=== PATIENT | female | born 1950 | race Caucasian/White ===

== ENCOUNTER 2017-11-14 08:27 | Inpatient (IN) | payer MEDICARE, OTHER ==
[~2017-11-14 08:27] MED LIST: CEFAZOLIN 2 Gram 2 GM/50 ML BAG IVPB ONE; CELECOXIB 100 MG CAPSULE PO ONE; FAMOTIDINE 20MG TABLET PO ONE; MECLIZINE 25 MG TABLET PO ONE; METOCLOPRAMIDE 10 MG TABLET PO ONE; VANCOMYCIN HCL 1,000 MG in DEXTROSE 5 % IN WATER 250 ML IVPB ONE
[2017-11-14 10:03] LABS: ABO GROUP A; RH TYPE POSITIVE
[2017-11-14 10:04] LABS: ANTIBODY SCREEN NEGATIVE (NEGATIVE)
[2017-11-14] MEDS ORDERED: BISACODYL 10 MG SUPP RC PRN (13:13)
[2017-11-14] MEDS ORDERED: NALOXONE 0.4 MG/1 ML VIAL IVP PRN (13:13)
[2017-11-14] MEDS ORDERED: ZOLPIDEM TARTRATE 5 MG TABLET PO PRN (13:13)
[2017-11-14] MEDS ORDERED: ACETAMINOPHEN W/ CODEINE 300MG/60MG TABLET PO PRN ×2 (13:13)
[2017-11-14] MEDS ORDERED: HYDROCODONE/APAP 10/325 TABLET PO PRN (13:13)
[2017-11-14] MEDS ORDERED: TRAMADOL HCL 50 MG TABLET PO PRN (13:13)
[2017-11-14] MEDS ORDERED: HYDROMORPHONE HCL 2 MG/ML VIAL IM PRN (13:13)
[2017-11-14] MEDS ORDERED: MAGNESIUM HYDROXIDE 30 ML UDC PO PRN (13:13)
[2017-11-14] MEDS ORDERED: KETOROLAC 30 MG/ML VIAL IVP PRN ×2 (13:13)
[2017-11-14] MEDS ORDERED: ACETAMINOPHEN 325 MG TAB PO PRN (13:13)
[2017-11-14] MEDS ORDERED: DIPHENHYDRAMINE HCL 25 MG CAPSULE PO PRN (13:13)
[2017-11-14] MEDS ORDERED: ONDANSETRON HCL IV 4 MG/2 ML VIAL IVP PRN (13:13)
[2017-11-14] MEDS ORDERED: AL HYDROX/MAG HYDROX 30ML UD PO PRN (13:13)
[2017-11-14] MEDS ORDERED: HYDROMORPHONE HCL 2 MG/ML VIAL IV ONE (14:00)
[2017-11-14] MEDS ORDERED: PROPOFOL 10 MG/ML VIAL IV ONE (14:00)
[2017-11-14] MEDS ORDERED: *PACU ONLY* KETAMINE HCL 10 MG/ML (20ML) VIAL IV ONE (14:00)
[2017-11-14] MEDS ORDERED: FENTANYL PF 100MCG/2ML VIAL IV ONE (14:00)
[2017-11-14] MEDS ORDERED: EPHEDRINE SULFATE 50 MG/ML ML IV ONE (14:00)
[2017-11-14] MEDS ORDERED: ONDANSETRON HCL IV 4 MG/2 ML VIAL IVP ONE (14:00)
[2017-11-14] MEDS ORDERED: DEXAMETHASONE 4 MG/ML 1ML VIAL IVP ONE (14:00)
[2017-11-14] MEDS ORDERED: MIDAZOLAM HCL 2MG/2ML VIAL IV ONE (14:00)
[2017-11-14] MEDS ORDERED: BUPIVACAINE 0.5% W/EPI MPF 30 ML VIAL IVP ONE (15:24)
[2017-11-14] MEDS ORDERED: SCOPOLAMINE 1 PATCH TDSY TD ONE (15:24)
[2017-11-14] MEDS ORDERED: TRANEXAMIC ACID 1,000 MG/10 ML ML IV ONE ×2 (15:24→15:41)
--- NOTE | 2017-11-14 15:24 | Operative Note ---
DATE: 11/14/2017 PREOPERATIVE DIAGNOSIS: END-STAGE ARTHROSIS OF THE LEFT KNEE. POSTOPERATIVE DIAGNOSIS: END-STAGE ARTHROSIS OF THE LEFT KNEE. PROCEDURE: Left total knee arthroplasty using [employer] II components with a size 6 Oxinium femur, size 5 stemmed tibial base plate, a 9 mm lipped Highly Crosslinked tibial insert, and a 35 mm all-plastic patella. STAFF SURGEON: SOWMYA ALVARENGA M.D. ANESTHESIA: SPINAL. PREPARATION: CHLORAPREP. INDIVIDUAL CONSIDERATIONS: NONE. PROCEDURE: The patient was taken to the Operating Room and placed supine on the operating table. She had a successful induction of a spinal anesthetic. Her left lower extremity was prepped and draped in the usual fashion. The patient had midline approach to the knee. The limb was elevated and the tourniquet was inflated to 250 mmHg Sharp dissection was carried down through the skin and subcutaneous tissue. Small veins were coagulated with a Bovie. A medial arthrotomy was performed. The patella was everted and the knee was flexed. She had exposed bone and large marginal osteophytes throughout. Fat pad was resected, ACL was sacrificed, provisional anterior meniscectomies were performed, and the capsule was released from the medial proximal tibia. The initial femoral airline transport pilot hole was then made freehand. The intramedullary femoral cutting jig was placed. It was cut in 7 degrees of valgus and adjusted for rotation and secured with pins for a 10 mm resection. The initial transverse cut was then made. Skin guide was placed in the anterior and posterior airline transport pilot holes and it was found that a size 6 would be appropriate but I needed to translate it anteriorly 2 mm to make it fit. The anterior and posterior cuts followed by chamfer cuts were made, osteophytes removed, and a size 6 trial was placed and found to fit well. The tibia was brought forward and the remainder of the meniscal remnants were removed with a Bovie. The extra-articular tibial cutting jig was placed and it was cut in neutral with a 3 degree AP slope. Care was taken to adjust for rotation and flexion using the extra-articular alignment guide and andreina landmarks. It was set for a 9 mm resection, keyed off the high lateral side, and secured with pins. When cutting the tibia, care was taken to preserve the PCL insertion on the tibia. Large medial osteophytes were removed and I was able to fit a size 5 baseplate. It was adjusted for rotation and secured with pins. With a 9 mm trial and a femoral trial, there was excellent motion and stability. Ligamentous balance, rotation, and alignment were thought to be normal. The femoral airline transport pilot holes were impacted, and the triflange tibial stamp was impacted, and these trial components were removed. The patient had a very thick patella and roughly 9 mm of bone was removed with the oscillating saw. I could easily fit a 35 patella and the three airline transport pilot holes were drilled. the tourniquet was let down to get bleeders posteriorly then placed back up again. The knee was then thoroughly irrigated out with pulsatile Betadine and saline to remove any visual or palpable debris. Bony surfaces were then dried. A size 5 stem tibial baseplate was cemented into place, followed by impaction of the 9 mm lipped tibial insert, followed by cementing of a size 6 Oxinium femur, followed by cementing of the 35 mm patella. Implant surfaces were compressed, excess cement was removed, and after the cement had set, there was excellent motion and stability. Ligamentous balance, rotation alignment, and patellofemoral tracking were normal. No lateral release was required. The tourniquet was let down. Hemostasis was obtained with a Bovie. There was final irrigation. I then took 30 mL of Marcaine withe Epinephrine and infiltrated the skin, subcut, and periosteum of the femur and tibia. I then went ahead and began closing the fascia with a #2 Quill then Rosalva Laguna, the certified legal secretary specialist, finished the closure of the fascia with the 2-Quill and then finished the subcut with 2-0 plus Quill and skin with ilya. She then injected 30 mL of saline mixed with a gram of Tranexamic Acid into the knee through a sterile 18-gauge needle. The patient did receive a gram of Tranexamic Acid prior to the procedure. The patient tolerated the procedure well. Needle and sponge counts were correct, estimated blood loss was minimal, and she was taken back to Recovery Room in good condition. There were no complications. JOB NUMBER: [id number] MTDD
[2017-11-14] MEDS ORDERED: 0.9 % SODIUM CHLORIDE 10 ML VIAL IVP ONE (15:41)
[2017-11-14] MEDS: HYDROCODONE/APAP 10/325 TABLET PO PRN ×2 (16:38→20:23)
--- NOTE | 2017-11-14 16:42 | Rehab Evaluation ---
Patient Information - Patient Information Diagnosis: L Knee DJD Ordered Treatment: PT Evaluate and Treat Status: Initial Evaluation Surgery: Yes (L TKA) Date of Surgery: 11/14/17 Past Medical/Surgical Hx: PAST MEDICAL/SURGICAL HISTORY Past Surgical History both hips replaced last one 2015; colonoscopy; achilles heel left. PMH - Respiratory Hx Respiratory Disorders No PMH - Cardiovascular Hx Cardiovascular Disorders Yes Hx Edema Yes: a little at times left ankle-none now Exercise Tolerance Fair Comment: likes to bike in summertime PMH - Neuro Hx Neurological Disorders No PMH - GI Hx Gastrointestinal Disorders Yes Hx Gastroesophageal Reflux Yes: a little-doesnt take anything for it PMH - Hx Genitourinary Disorders Yes Hx Age of Menopause 52 Patient No Hx Urinary Tract Infection Yes: hx of-last one January 2017 PMH - Endocrine Hx Endocrine Disorders No PMH - Musculoskeletal Hx Musculoskeletal Disorders Yes Hx Arthritis Yes: knees Hx Back Injury No PMH - Psych Hx Psychiatric Problems No PMH - Hematology/Oncology Hx Hematology/Oncology No Disorders Social History: Detail (The patient lives in a single story home with her . The home has one step to enter without a railing. The patient's bathroom has an elevated toilet and a walk-in shower with hand held shower head , and there are no grab bars present in the bathroom. She will be using a 2WW for ambulation upon recovering from surgery.) Precautions: [place], Other (WBAT on L LE) - Time With Patient Total Time Spent With Patient (Min): 30 Treatment Procedures: Detail (PT Initial Evaluation) Subjective Information - Subjective Information Per Patient (The patient had no complaints of pain or dizziness/nausea) Objective Data - Pain Pain Present: No Pain Intensity: 0 Pain Scale Used: Numeric (1 - 10) - Mental Status Patient Orientation: Oriented x3 - ROM Not within normal limits (Not formally assessed, but R ankle, knee, and hip were within functional limits. L Hip and ankle were not formally assessed, but were within functional limits. Decreased L Knee ROM as expected s/p L TKA.) - Strength/Tone Not within normal limits (Not formally assessed, but R ankle, knee, and hip were within functional limits. L Hip and ankle were not formally assessed, but were within functional limits. Decreased L Knee strength as expected s/p L TKA.) - Bed Mobility Independent (The patient was independent with use of bed rails for transferring from supine to sit and sit to supine. She was independent with scooting to the EOB and middle of the bed.) - Transfers Independent (Initial sit to stand required CGA x1. She requested to use the restroom, and was independent with to and from toilet transfer with use of grab bars. The patient was also independent with stand to sit.) - Balance Balance Sitting: Good (No LOB with sitting at EOB) Balance Standing: Good (Initial standing showed some LOB, but after initial standing she was able to stand without LOB. She had no LOB with gait activities. ) - Gait Detail (The patient was able to ambulate with supervision for safety with WBAT on L LE and 2WW from her room to the nurse's station and back (about 140 feet total). She required no rest during ambulation.) Therapy Assessment - Therapy Assessment Detail (The patient had decreased L Knee ROM and strength, as expected s/p L TKA. The patient was independent with transfers and bed mobility, and only required supervision during ambulation activities. The patient had a small LOB with initial sit to stand transfer, but as therapy continued, her balance improved.) Patient Education - Patient Education Teaching Topic: Exercise/Activity (HEP was instructed, which included: Quad sets , SLR, Heel Slides/Hamstring Sets, glute. sets, and ankle pumps. The patient was instructed to complete 10 reps 1-2x/day) Response: Return Demonstration, Verbalize Understanding Teaching Method: Discussion Teaching Recipient: Patient Barriers To Learning: None Problem List - Problem List Physical Therapy Problem List: Detail (1) Decreased L Knee ROM and strength as expected s/p L TKA 2) Ability to ascend/descend stairs not assessed) Goals - Goals Physical Therapy Goals: 1) The patient will be able to ascend/descend 2 steps with supervision to safely enter her home. 2) The patient will be independent in HEP so she can increase ROM and strength to increase functionality at home Prognosis - Prognosis Good Plan - Plan Physical Therapy Plan: The patient will be seen 1-2x/day M-F for gait training and L LE strengthening/ROM exercises.
[2017-11-14] MEDS: POTASSIUM CHLORIDE/D5-0.9%NACL 20 MEQ/1,000 ML BAG IV SCH ×2 (18:14→22:05)
[2017-11-14] MEDS: CEFAZOLIN 2 Gram 2 GM/50 ML BAG IVPB SCH (18:17)
[2017-11-14] MEDS: DOCUSATE SODIUM 100 MG CAPSULE PO SCH (21:58)
[2017-11-15] MEDS: HYDROCODONE/APAP 10/325 TABLET PO PRN ×3 (01:26→10:39)
[2017-11-15] MEDS: CEFAZOLIN 2 Gram 2 GM/50 ML BAG IVPB SCH ×2 (02:51→11:56)
[2017-11-15 06:50] LABS: HEMATOCRIT 36.5 % (35.0-47.0); HEMOGLOBIN 11.6 gm/dl (11.6-16.0)
[2017-11-15] MEDS: POTASSIUM CHLORIDE/D5-0.9%NACL 20 MEQ/1,000 ML BAG IV SCH (07:39)
--- NOTE | 2017-11-15 09:44 | Physical Therapy Tx Note ---
Physical Therapy Tx Note - Treatment Note Tolerated: Good Total Time Spent With Patient: 20 Physical Therapy Tx Note: Detail (The patient was laying in bed with head elevated on arrival. She was able to transfer from supine to sit independently. She was then able to ambulate from her room to the nurse's station (about 54 feet) with supervision only. She was able to ascend/descend 3 steps with use of railing and supervision. She was then able to ambulate back to her room from the nurse's station (another 54 feet). She was able to transfer back in to bed independently. She was left in bed with head elevated, call light in reach, and present. The patient has passed all inpatient PT skills at this time.) Physical Therapy Problem List: Detail (1) Decreased L Knee ROM and strength as expected s/p L TKA 2) Ability to ascend/descend stairs not assessed) Physical Therapy Goals: 1) The patient will be able to ascend/descend 2 steps with supervision to safely enter her home - MET. 2) The patient will be independent in HEP so she can increase ROM and strength to increase functionality at home - MET Prognosis: Good Physical Therapy Plan: The patient was met all inpatient PT goals, and does not require further inpatient PT. She would benefit from continued Outpatient and/ or Home therapy to increase strength and ROM and functional ability.
[2017-11-15] MEDS ORDERED: FERROUS SULFATE 325 MG TAB PO SCH (10:00)
[2017-11-15] MEDS ORDERED: RIVAROXABAN 10 MG TABLET PO SCH (10:00)
[2017-11-15] MEDS: DOCUSATE SODIUM 100 MG CAPSULE PO SCH (10:39)
--- NOTE | 2017-11-15 11:22 | Rehab Evaluation ---
Patient Information - Patient Information Diagnosis: L Knee DJD Ordered Treatment: OT Evaluate and Treat Status: Initial Evaluation Surgery: Yes (L TKA) Date of Surgery: 11/14/17 Past Medical/Surgical Hx: PAST MEDICAL/SURGICAL HISTORY Past Surgical History both hips replaced last one 2015; colonoscopy; achilles heel left. PMH - Respiratory Hx Respiratory Disorders No PMH - Cardiovascular Hx Cardiovascular Disorders Yes Hx Edema Yes: a little at times left ankle-none now Exercise Tolerance Fair Comment: likes to bike in summertime PMH - Neuro Hx Neurological Disorders No PMH - GI Hx Gastrointestinal Disorders Yes Hx Gastroesophageal Reflux Yes: a little-doesnt take anything for it PMH - Hx Genitourinary Disorders Yes Hx Age of Menopause 52 Patient No Hx Urinary Tract Infection Yes: hx of-last one January 2017 PMH - Endocrine Hx Endocrine Disorders No PMH - Musculoskeletal Hx Musculoskeletal Disorders Yes Hx Arthritis Yes: knees Hx Back Injury No PMH - Psych Hx Psychiatric Problems No PMH - Hematology/Oncology Hx Hematology/Oncology No Disorders Social History: Detail (The patient lives in a single story home with her . The home has one step to enter without a railing. The patient's bathroom has an elevated toilet and a walk-in shower with hand held shower head , no seat, and there are no grab bars present in the bathroom. She will be using a 2WW for ambulation upon recovering from surgery. She has a toilet riser , 2 wheeled walker, sock aid, horticultural specialty grower, shoe horn and straight cane. She and spouse usually share home mgmt, meal prep and laundry but spouse will be responsible for these tasks temporarily.) Precautions: [place], Other (WBAT on L LE) - Time With Patient Total Time Spent With Patient (Min): 40 Treatment Procedures: Detail (OT eval low complexity) Subjective Information - Subjective Information Per Patient (-10/28) Objective Data - Pain Pain Present: Yes - Mental Status Patient Orientation: Oriented x3 - Visual Perception Appears within normal limits for therapeutic activities (Pt wears glasses) - ROM Within normal limits (Bernabe UE AROM WNL) - Strength/Tone Within normal limits (Bernabe UE strength WNL) - Coordination Appears within normal limits for therapeutic activities - Bed Mobility Independent (Ind with supine to sit) - Transfers Independent (Ind with sit to stand from EOB) - Balance Balance Sitting: Good Balance Standing: Good - Sensation Intact - ADL's/IADL's Detail (Pt able to demonstrate total body dressing using modified LE dressing techniques. She will have assistance from spouse if needed. Reviewed shower safety and modifications for IADLs, pt verbalized understanding.) Therapy Assessment - Therapy Assessment Detail (Pt is safe and Ind with self cares using modifed techniques.) Problem List - Problem List Physical Therapy Problem List: Detail (1) Decreased L Knee ROM and strength as expected s/p L TKA 2) Ability to ascend/descend stairs not assessed) Occupational Therapy Problem List: Detail (No current OT problems identified.) Goals - Goals Physical Therapy Goals: 1) The patient will be able to ascend/descend 2 steps with supervision to safely enter her home - MET. 2) The patient will be independent in HEP so she can increase ROM and strength to increase functionality at home - MET Occupational Therapy Goals: No current OT goals identified. Prognosis - Prognosis Good Plan - Plan Physical Therapy Plan: The patient was met all inpatient PT goals, and does not require further inpatient PT. She would benefit from continued Outpatient and/ or Home therapy to increase strength and ROM and functional ability. Occupational Therapy Plan: No further IP OT recommended. Thank you for this referral.
--- NOTE | 2017-11-15 22:01 | Discharge Summary ---
DATE OF ADMISSION: 11/14/2017 DATE OF DISCHARGE: 11/15/2017 DATE OF SURGERY: 11/14/2017. HISTORY: Komal is a delightful 67-year-old female who presents with end-stage arthrosis of her left knee. She was admitted after left total knee arthroplasty. Postoperatively, she did well. Her hospital course was unremarkable. Discharge hemoglobin was 11.6. She was independent with therapy. DISCHARGE INSTRUCTIONS: The plan is to discharge her to home to the care of her family and home PT and Visiting Nurse will be arranged. Sutures will be removed by the Visiting Nurse in two weeks. She will follow-up in my office in four weeks. Her discharge condition was good. FINAL DIAGNOSIS/PRIMARY DIAGNOSIS: END-STAGE ARTHROSIS OF THE LEFT KNEE. SECONDARY DIAGNOSIS: OPERATIVE BLOOD LOSS ANEMIA. OPERATIONS AND PROCEDURES: CEMENTED LEFT TOTAL KNEE ARTHROPLASTY. cc: Dr. Kristie Rangel JOB NUMBER: [id number] MTDD
== END 2017-11-15 12:50 | disposition home health service (06) | DRG 470 ==
LOC: MEDSURG 08:27
PROVIDERS: ADMIT Orthopaedic Surgery; ATTEND Orthopaedic Surgery
PROC: 0SRD069 Replacement of Left Knee Joint with Oxidized Zirconium on Polyethylene Synthetic Substitute, Cemented, Open Approach (ICD-10-PCS; principal; 2017-11-14 11:00)
DX: M17.12 Unilateral primary osteoarthritis, left knee (principal)
CPT/HCPCS: 80048; 85014; 85018; 86850; 86900; 86901; 97165; 97530; J2405; J3480; J7060